=== PATIENT | female | born 1960 | race Caucasian/White ===

== ENCOUNTER 2018-02-22 08:35 | Emergency (ER) | END 2018-02-22 09:54 | disposition home or self-care (01) ==

== ENCOUNTER 2018-10-01 09:30 | Emergency (ER) | END 2018-10-01 11:24 | disposition home or self-care (01) ==

== ENCOUNTER 2019-04-27 10:45 | Emergency (ER) | payer OTHER ==
[~2019-04-27] VITALS: Ht 154.9 cm; Wt 86.0 kg
[~2019-04-27 10:45] MED LIST: AMLO5TAB4 PO; BENZ-6 PO; BENZ1LOZ52 MM; CETI10CA PO; CLOT30CR24 TOP; HYDR-3498 PO; IBUP-1542 PO; IBUP-1561 PO; MULTIVITAMINS PO; TRIA1CAP PO; ZOC10 PO
[2019-04-27 10:48] VITALS: Ht 154.9 cm; Wt 86.0 kg
[2019-04-27] MEDS ORDERED: PSEU-79 PO (11:08)
[2019-04-27] MEDS ORDERED: NAPR-985 PO (11:08)
--- NOTE | 2019-04-27 11:30 | ERD ---
ER Documentation Chief Complaint Chief Complaint SORE THROAT FOR 3 DAYS; NO DROOLING, NO STRIDORS. HPI 58-year-old female presenting with a sore throat x3 days. Patient has not taken medications for symptoms and denies fevers. She has a runny nose with no history of cough. Her pain is worse with swallowing. Medical history is arthritis. NKDA. Surgical history denies. Social history denies ROS All systems reviewed and are negative except as per history of present illness. Medications Home Meds Active Scripts Pseudoephedrine Hcl* (Suphedrin*) 30 Mg Tablet, 30 MG PO Q6 PRN for CONGESTION, #30 TAB Prov:RADHA MARQUEZ PA-C 04/27/19 Naproxen* (Naprosyn*) 500 Mg Tablet, 500 MG PO BID PRN for PAIN AND/OR INFLAMMATION, #30 TAB Prov:RADHA MARQUEZ PA-C 04/27/19 Ibuprofen* (Motrin*) 400 Mg Tab, 400 MG PO Q6, #30 TAB Prov:NATALIE ROSENBERG PA-C 10/01/18 Benzonatate* (Tessalon Perle*) 100 Mg Capsule, 100 MG PO Q8H PRN for COUGH, #20 CAP Prov:KATERYNA DÍAZC 02/22/18 Benzocaine/Menthol* (Cepacol* Sore Throat Lozenges) 1 Each Lozenge, 1 EACH MM q2h PRN for SORE THROAT, #20 LOZENGE Prov:KATERYNA DÍAZC 02/22/18 Cetirizine Hcl* (Zyrtec*) 10 Mg Capsule, 10 MG PO DAILY, #10 TAB.CHEW Prov:KATERYNA DÍAZC 02/22/18 Ibuprofen* (Motrin*) 600 Mg Tab, 600 MG PO Q6, #30 TAB Prov:KATERYNA DÍAZC 02/22/18 Hydrocodone Bit-Acetaminophen* ([place]*) 5-325 Mg Tab, 1 TAB PO QHS PRN for PAIN, #7 TAB 0 Refills Prov:SUSANNE SEVERINOC 12/19/15 Ibuprofen* (Motrin*) 600 Mg Tab, 600 MG PO BID, #30 TAB 0 Refills Prov:SUSANNE SEVERINOC 12/19/15 Hydrocodone Bit-Acetaminophen* ([place]*) 5-325 Mg Tab, 1 TAB PO Q6 PRN for PAIN, #10 TAB Prov:SALBADOR DAMICO DO 10/28/15 Ibuprofen* (Motrin*) 600 Mg Tab, 600 MG PO Q6, #30 TAB Prov:GARCIA KWON 09/06/15 Clotrimazole* (Clotrimazole* AF) 1% - 30 Gm Cream.gm., 1 APPLIC TOP BID for 7 Days, TUB Prov:GARCIA KWON 09/06/15 Reported Medications Amlodipine Besylate* (Norvasc*) 5 Mg Tablet, 5 MG PO DAILY, TAB 12/09/15 Triamterene-HCTZ* (Triamterene-HCTZ*) 37.5 - 25 Mg Capsule, 1 CAP PO DAILY, CAP 12/09/15 Simvastatin (Simvastatin) 10 Mg Tablet, 10 MG PO QHS, #30 TAB 12/09/15 [Multivitamins] No Conflict Check, 1 TAB PO DAILY 05/02/13 Allergies Allergies: Coded Allergies: No Known Allergy (Unverified , 06/10/14) PMhx/Soc Medical and Surgical Hx: pt denies Surgical Hx History of Surgery: No Anesthesia Reaction: No Hx Neurological Disorder: No Hx Respiratory Disorders: No Hx Cardiac Disorders: Yes (HTN, HYPERLIPIDEMIA) Hx Psychiatric Problems: No Hx Miscellaneous Medical Probl: Yes (HTN , HIGH CHOLESTEROL) Hx Alcohol Use: No Hx Substance Use: No Hx Tobacco Use: No Smoking Status: Never smoker FmHx Family History: No diabetes, No coronary disease, No other Physical Exam Vitals Vital Signs Date Temp Pulse Resp B/P (MAP) Pulse Ox O2 O2 Flow FiO2 Time Delivery Rate 04/27/19 98.1 75 18 153/72 72 10:48 (99) Physical Exam GENERAL: The patient is well-appearing, well-nourished, in no acute distress HEENT: Atraumatic. Conjunctivae are pink. Pupils equal, round, and reactive to light. There is no scleral icterus. Tympanic membranes clear bilaterally. Oropharynx clear. NECK: C-spine is soft and supple. There is no meningismus. There is no cervical lymphadenopathy. CHEST: Clear to auscultation bilaterally. There are no rales, wheezes or rhonchi. HEART: Regular rate and rhythm. No murmurs, clicks, rubs or gallops. Procedures/MDM MDM: 58-year-old female presenting with a sore throat. Patient's exam is non- concerning and vitals are stable. I have low suspicion for strep throat. I have low suspicion for peritonsillar retropharyngeal abscess. Exam is non- concerning. Patient is discharged with supportive medications and told to follow-up with primary care within 1 to 2 days for close evaluation. She is told if symptoms change or worsen to return immediately to the ER. All questions answered at discharge Departure Diagnosis: Primary Impression: Sore throat Condition: Stable Patient Instructions: Self-Care for Sore Throats Referrals: LORIE JULIAN (PCP) Additional Instructions: FOLLOW UP WITH YOUR PRIMARY CARE PHYSICIAN TOMORROW.Return to this facility if you are not improving as expected. RADHA MARQUEZ PA-C Apr 27, 2019 11:30
[2019-04-27 11:53] VITALS: BP 141/63; PULSE 76; RESP 18
== END 2019-04-27 11:54 | disposition home or self-care (01) ==
LOC: FTE 10:45
DX: J02.9 Acute pharyngitis, unspecified (principal); I10 Essential (primary) hypertension
CPT/HCPCS: 99282